=== PATIENT | male | born 1990 | race African-American/Black ===

== ENCOUNTER 2023-06-19 18:10 | Emergency (ER) | payer SELFPAY ==
[2023-06-19] MEDS ORDERED: Acetaminophen 500 MG TAB ONE (19:26)
[2023-06-19] MEDS ORDERED: Ketorolac Tromethamine 30 MG/ML VIAL ONE (19:26)
[2023-06-19 19:47] LABS: SARS-CoV-2 NAA Rapid Test Not Detected (NotDetected)
[2023-06-19] MEDS ORDERED: diphenhydrAMINE 25 MG CAP ONE (20:18)
[2023-06-19] MEDS ORDERED: Prochlorperazine Maleate 5 MG TAB ONE (20:18)
== END 2023-06-19 20:40 | disposition home or self-care (01) ==
LOC: CSHERS 18:10
DX: J10.1 Influenza due to other identified influenza virus with other respiratory manifestations (principal); Z20.822 Contact with and (suspected) exposure to COVID-19
CPT/HCPCS: 71045; 93005; 96372; J1885; Q0164